=== PATIENT | male | born 1975 | race Caucasian/White ===

== ENCOUNTER 2020-08-19 16:08 | Emergency (ER) | payer OTHER ==
[~2020-08-19] VITALS: Ht 188 cm; Wt 95.0 kg
[2020-08-19] MEDS ORDERED: SODIUM CHLORIDE 0.9% 1000ML BAG (SEPSIS BOLUS) IV ONE (17:30)
[2020-08-19 19:16] LABS: BASOPHILS % 0.5 % (0.0-2.0); EOSINOPHILS % 0.6 % (0.0-5.0); HEMOGLOBIN. 13.2 g/dL (14.0-18.0); LYMPHOCYTES % 11.5 % (20.0-50.0); MEAN CORPUSCULAR HEMOGLOBIN 33.7 pg (28.0-32.0); MEAN CORPUSCULAR VOLUME 94.9 fL (80.0-94.0); NEUTROPHILS % 77.4 % (40.0-76.0); PLATELET 175 x1000/uL (130-400); RED CELL DISTRIBUTION WIDTH 13.8 % (11.6-14.6)
[2020-08-19 19:20] LABS: CHLORIDE 107 mEq/L (98-107)
[2020-08-19 19:24] LABS: ETHANOL BLOOD < 10 mg/dL
[2020-08-19] MEDS ORDERED: PIPERACILLIN/TAZ 3.375G PREMIX 50 ML IV ONE (20:15)
[2020-08-19 21:12] LABS: CLARITY URINE CLEAR (CLEAR); COLOR URINE YELLOW (YELLOW); KETONES URINE NEGATIVE (NEGATIVE); LEUKOCYTE ESTERASE URINE NEGATIVE (NEGATIVE); NITRITE URINE NEGATIVE (NEGATIVE); OCCULT BLOOD URINE NEGATIVE (NEGATIVE); PH URINE 5.5 (4.5-8.0); PROTEIN URINE NEGATIVE (NEGATIVE); SPECIFIC GRAVITY URINE 1.009 (1.005-1.030)
[2020-08-19 21:24] LABS: *COCAINE SCREEN URINE NEGATIVE (NEGATIVE)
[2020-08-19 21:25] LABS: *AMPHETAMINES SCREEN URINE NEGATIVE (NEGATIVE); *BARBITURATES SCREEN URINE NEGATIVE (NEGATIVE); *BENZODIAZEPINES SCREEN URINE NEGATIVE (NEGATIVE); CANNABINOID URINE SCREEN NEGATIVE (NEGATIVE); METHADONE URINE SCREEN NEGATIVE (NEGATIVE); OPIATES URINE SCREEN NEGATIVE (NEGATIVE); PHENCYCLIDINE URINE SCREEN NEGATIVE (NEGATIVE)
[2020-08-19] MEDS ORDERED: LORAZEPAM 2MG/ML CPJ IV ONE (21:30)
[2020-08-19] MEDS ORDERED: ZOLPIDEM TARTRATE 5MG TABLET PO PRN (22:15)
[2020-08-19] MEDS ORDERED: DEXTROSE 50% WATER 50ML SYRINGE IV PRN (22:15)
[2020-08-19] MEDS ORDERED: ONDANSETRON HCL 4MG/2ML INJ IV PRN (22:15)
[2020-08-19] MEDS ORDERED: ACETAMINOPHEN 325MG TABLET PO PRN (22:15)
[2020-08-19] MEDS ORDERED: MAGNESIUM/ALUMINUM HYDROXIDE/SIMETHICONE 30ML UDC PO PRN (22:15)
[2020-08-19] MEDS ORDERED: DOCUSATE SODIUM 100MG CAPSULE PO PRN (22:15)
[2020-08-19] MEDS ORDERED: IPRATROPIUM/ALBUTEROL 0.5-3(2.5)MG/3ML NEB NEB PRN (22:15)
[2020-08-19] MEDS ORDERED: NITROGLYCERIN 0.4MG TABLET SL SL PRN (22:15)
[2020-08-19] MEDS ORDERED: GUAIFENESIN 200MG/10ML SUGAR FREE UDC PO PRN (22:15)
[2020-08-19] MEDS ORDERED: CLONIDINE 0.1MG TABLET PO PRN (22:15)
[2020-08-19] MEDS ORDERED: KETOROLAC 15MG/ML VIAL IV PRN (22:15)
[2020-08-19] MEDS ORDERED: HALOPERIDOL LACTATE 5MG/ML VIAL IM PRN (22:15)
[2020-08-19 22:44] LABS: T4 FREE 1.31 ng/dL (0.76-1.46)
[2020-08-19 22:55] LABS: FOLIC ACID (FOLATE) SERUM 19.7 ng/mL (>5.38)
[2020-08-19] MEDS: SODIUM CHLORIDE 0.9% 1,000 ML IV SCH (22:57)
[2020-08-19] MEDS: ENOXAPARIN 30MG/0.3ML SYR SUBCUT SCH (23:30)
[2020-08-20 06:13] LABS: BASOPHILS % 0.6 % (0.0-2.0); EOSINOPHILS % 1.9 % (0.0-5.0); HEMATOCRIT. 39.8 % (42.0-52.0); HEMOGLOBIN. 13.7 g/dL (14.0-18.0); LYMPHOCYTES % 17.6 % (20.0-50.0); MEAN CORPUSCULAR HEMOGLOBIN 32.4 pg (28.0-32.0); MEAN CORPUSCULAR VOLUME 94.3 fL (80.0-94.0); MEAN PLATELET VOLUME 7.6 fl (7.4-10.4); MONOCYTES % 11.1 % (2.0-8.0); NEUTROPHILS % 68.8 % (40.0-76.0); PLATELET 204 x1000/uL (130-400); RED BLOOD CELL COUNT 4.22 mill/uL (4.7-6.1); RED CELL DISTRIBUTION WIDTH 13.8 % (11.6-14.6)
[2020-08-20 06:21] LABS: CHLORIDE 109 mEq/L (98-107)
[2020-08-20 06:26] LABS: PHOSPHORUS 3.2 mg/dL (2.5-4.9)
[2020-08-20 06:29] LABS: CREATINE KINASE 63 IU/L (39-308)
[2020-08-20 06:32] LABS: CREATINE KINASE MB FRACTION < 1.0 ng/mL (0.5-3.6)
[2020-08-20] MEDS: SODIUM CHLORIDE 0.9% 1,000 ML IV SCH (07:30)
[2020-08-20] MEDS: BLOOD SUGAR DIAGNOSTIC STRIP TEST SCH ×3 (08:00→13:25)
[2020-08-20] MEDS: INSULIN LISPRO 100 UNITS/ML SUBCUT SCH ×2 (08:30→13:20)
[2020-08-20] MEDS: ZINC SULFATE 220 MG ( 50 ) CAPSULE PO SCH (09:15)
[2020-08-20] MEDS: FAMOTIDINE 20MG TABLET PO SCH (09:15)
[2020-08-20] MEDS: ASCORBIC ACID 500 MG TABLET PO SCH ×2 (09:15→22:33)
[2020-08-20] MEDS: ASPIRIN 325MG EC TABLET PO SCH (09:30)
[2020-08-20] MEDS: ENOXAPARIN 30MG/0.3ML SYR SUBCUT SCH (12:00)
[2020-08-20] MEDS: ACETAMINOPHEN 325MG TABLET PO PRN ×2 (17:51→22:33)
[2020-08-21] MEDS: SODIUM CHLORIDE 0.9% 1,000 ML IV SCH ×2 (04:15→21:31)
[2020-08-21] MEDS ORDERED: ACETAMINOPHEN 325MG TABLET PO ONE (09:00)
[2020-08-21] MEDS: INSULIN LISPRO 100 UNITS/ML SUBCUT SCH ×2 (13:00→21:40)
[2020-08-21] MEDS ORDERED: LORAZEPAM 1MG TABLET PO ONE (13:45)
[2020-08-21] MEDS ORDERED: ARIPIPRAZOLE 5MG TABLET PO ONE (13:45)
[2020-08-21] MEDS: BLOOD SUGAR DIAGNOSTIC STRIP TEST SCH (21:31)
[2020-08-21] MEDS: ENOXAPARIN 30MG/0.3ML SYR SUBCUT SCH (23:30)
[2020-08-22] MEDS: SODIUM CHLORIDE 0.9% 1,000 ML IV SCH (07:30)
[2020-08-22] MEDS: INSULIN LISPRO 100 UNITS/ML SUBCUT SCH (08:30)
[2020-08-22] MEDS: FAMOTIDINE 20MG TABLET PO SCH (09:00)
[2020-08-22] MEDS: ASPIRIN 325MG EC TABLET PO SCH (09:00)
[2020-08-22] MEDS: ASCORBIC ACID 500 MG TABLET PO SCH (09:00)
[2020-08-22] MEDS: ZINC SULFATE 220 MG ( 50 ) CAPSULE PO SCH (09:00)
[2020-08-22] MEDS: ARIPIPRAZOLE 5MG TABLET PO SCH (10:09)
[2020-08-22] MEDS: ENOXAPARIN 30MG/0.3ML SYR SUBCUT SCH (11:30)
[2020-08-22] MEDS: BLOOD SUGAR DIAGNOSTIC STRIP TEST SCH (13:00)
[2020-08-23] MEDS: SODIUM CHLORIDE 0.9% 1,000 ML IV SCH (06:15)
[2020-08-23] MEDS: ASCORBIC ACID 500 MG TABLET PO SCH (07:30)
[2020-08-23] MEDS: ASPIRIN 325MG EC TABLET PO SCH (07:31)
[2020-08-23] MEDS: ZINC SULFATE 220 MG ( 50 ) CAPSULE PO SCH (07:32)
[2020-08-23] MEDS: ENOXAPARIN 30MG/0.3ML SYR SUBCUT SCH (07:32)
[2020-08-23] MEDS: FAMOTIDINE 20MG TABLET PO SCH (07:32)
[2020-08-23] MEDS: BLOOD SUGAR DIAGNOSTIC STRIP TEST SCH (07:33)
[2020-08-23] MEDS: INSULIN LISPRO 100 UNITS/ML SUBCUT SCH (07:51)
[2020-08-23] MEDS: ARIPIPRAZOLE 5MG TABLET PO SCH (09:00)
[2020-08-24] MEDS: INSULIN LISPRO 100 UNITS/ML SUBCUT SCH (21:00)
[2020-08-24] MEDS: BLOOD SUGAR DIAGNOSTIC STRIP TEST SCH (21:00)
[2020-08-24] MEDS ORDERED: ACETAMINOPHEN 325MG TABLET PO ONE (22:45)
[2020-08-25 13:25] VITALS: BP 118/84
== END 2020-08-25 13:41 | disposition admitted as inpatient to this hospital (09) ==
LOC: ER 16:08 → CANRESERV 08-20 08:10 → ENRESERV 08-20 08:10 → CANBEDREQ 08-20 10:24 → ER 08-25 13:41
DX: T46.4X2A Poisoning by angiotensin-converting-enzyme inhibitors, intentional self-harm, initial encounter (principal); T50.2X2A Poisoning by carbonic-anhydrase inhibitors, benzothiadiazides and other diuretics, intentional self-harm, initial encounter; S61.512A Laceration without foreign body of left wrist, initial encounter; N17.9 Acute kidney failure, unspecified; I95.9 Hypotension, unspecified; F25.9 Schizoaffective disorder, unspecified; F32.9 Major depressive disorder, single episode, unspecified; I10 Essential (primary) hypertension; E11.9 Type 2 diabetes mellitus without complications; F10.21 Alcohol dependence, in remission; D64.9 Anemia, unspecified; F10.20 Alcohol dependence, uncomplicated; Y90.0 Blood alcohol level of less than 20 mg/100 ml; Z20.822 Contact with and (suspected) exposure to COVID-19; Z75.1 Person awaiting admission to adequate facility elsewhere; Y92.018 Other place in single-family (private) house as the place of occurrence of the external cause
CPT/HCPCS: 36415; 70450; 71045; 76770; 80053; 80061; 80305; 80307; 80320; 80329; 81003; 82607; 82746; 82962; 83036; 83540; 83550; 83605; 83880; 84145; 84439; 84443; 84484; 85025; 87086; 93005; 93970; 99285; J1885; J2060; J2543; J7030; G0480